=== PATIENT | female | born 1985 | race Caucasian/White ===

== ENCOUNTER 2018-12-23 18:39 | Emergency (ER) | payer MEDICAID ==
[~2018-12-23] VITALS: Ht 157.5 cm; Wt 53.0 kg
[~2018-12-23 18:39] MED LIST: NO HOME MEDS
[2018-12-23 18:42] VITALS: BP 114/57
[2018-12-23 19:14] LABS: INR 1.1 INR; PROTHROMBIN TIME 11.3 SECONDS (9.0-12.0)
[2018-12-23 19:15] LABS: ALANINE AMINOTRANSFERASE 18 U/L (12-78); ALBUMIN 4.3 G/DL (3.4-5.0); ALBUMIN/GLOBULIN RATIO 1.1 (1.1-1.5); ALKALINE PHOSPHATASE 14 IU/L (46-116); ANION GAP 11 (8-16); ASPARTATE AMINO TRANSFERASE 14 U/L (10-37); BILIRUBIN,TOTAL 0.4 MG/DL (0.1-1.0); BLOOD UREA NITROGEN 16 MG/DL (7-18); BUN/CREATININE RATIO 23.2 (6.6-38.0); CALCIUM 9.4 MG/DL (8.5-10.1); CHLORIDE 102 MMOL/L (99-107); CREATININE 0.69 MG/DL (0.40-0.90); GLUCOSE 105 MG/DL (70-104); POTASSIUM 3.8 MMOL/L (3.5-5.1); SODIUM 141 MMOL/L (135-145); TOTAL CARBON DIOXIDE 28.3 MMOL/L (24-32); TOTAL PROTEIN 8.1 G/DL (6.4-8.2); eGFR > 90 ML/MIN
[2018-12-23 19:17] LABS: BASOPHILS % (AUTO) 0.3 % (0-1); EOSINOPHILS % (AUTO) 0.4 % (0-6); HEMATOCRIT 30.8 % (35.0-45.0); HEMOGLOBIN 9.5 g/dl (12.0-16.0); LYMPHOCYTES # (AUTO) 1.1 X10'3 (1.1-4.8); LYMPHOCYTES % (AUTO) 13.8 % (21-51); MEAN CORPUSCULAR HEMOGLOBIN 23.9 PG (27.0-31.0); MEAN CORPUSCULAR HGB CONC 30.7 g/dL (33.0-36.5); MEAN CORPUSCULAR VOLUME 77.8 FL (78-98); MEAN PLATELET VOLUME 8.1 FL (7.4-10.4); MONOCYTES # (AUTO) 0.4 X10'3 (0-0.9); MONOCYTES % (AUTO) 5.7 % (2-12); NEUTROPHILS # (AUTO) 6.1 X10'3 (1.8-7.7); NEUTROPHILS % (AUTO) 79.8 % (42-75); PLATELET COUNT 443 X10'3 (140-440); RED BLOOD COUNT 3.96 X10'6 (4.20-5.60); RED CELL DISTRIBUTION WIDTH 18.7 % (11.5-14.5); WHITE BLOOD COUNT 7.6 X10'3 (4.5-11.0)
--- NOTE | 2018-12-23 19:57 | NUR ---
NO RESPONSE FROM LOBBY WHEN ATTEMPTING ROOM. CALL PLACED TO NUMBER ON FILE, MESSAGE BOX FULL UNABLE TO LEAVE MESSAGE FOR F/U. DR NAILS INFORMED.
[2018-12-23 20:12] LABS: PLATELET ESTIMATE INCREASED
[2018-12-23 20:13] LABS: ACANTHOCYTES FEW; ANISOCYTOSIS 2+; HYPOCHROMASIA 1+; MICROCYTOSIS 1+; POLYCHROMASIA FEW; TARGET CELLS FEW
== END 2018-12-23 21:03 | disposition left against medical advice (07) ==
LOC: ER 18:39
DX: R10.9 Unspecified abdominal pain (principal); Z53.21 Procedure and treatment not carried out due to patient leaving prior to being seen by health care provider
CPT/HCPCS: 36415; 80053; 85025; 85610

== ENCOUNTER 2019-12-04 13:45 | Emergency (ER) | payer MEDICAID | END 2019-12-04 14:38 | disposition left against medical advice (07) | LOC: ER 13:45 | DX: M79.603 Pain in arm, unspecified (principal); Z53.21 Procedure and treatment not carried out due to patient leaving prior to being seen by health care provider ==

== ENCOUNTER 2023-08-02 23:02 | Inpatient (IN) | payer MEDICAID ==
[~2023-08-02] VITALS: Ht 160 cm; Wt 55.4 kg
[2023-08-02 23:19] LABS: BASOPHILS # (AUTO) 0.1 X10'3 (0-0.2); EOSINOPHILS # (AUTO) 0.1 X10'3 (0-0.9); LYMPHOCYTES # (AUTO) 1.7 X10'3 (1.1-4.8); NEUTROPHILS # (AUTO) 3.7 X10'3 (1.8-7.7)
[2023-08-02 23:20] LABS: EOSINOPHILS % (AUTO) 1.9 % (0-6); LYMPHOCYTES % (AUTO) 28.4 % (21-51); MONOCYTES # (AUTO) 0.5 X10'3 (0-0.9); MONOCYTES % (AUTO) 8.5 % (2-12); NEUTROPHILS % (AUTO) 60.2 % (42-75); PLATELET COUNT 412 X10'3 (140-440); WHITE BLOOD COUNT 6.1 X10'3 (4.5-11.0)
[2023-08-02 23:28] LABS: ALANINE AMINOTRANSFERASE 21 U/L (12-78); ALBUMIN 4.4 G/DL (3.4-5.0); ALBUMIN/GLOBULIN RATIO 1.2 (1.1-1.5); ALKALINE PHOSPHATASE 24 IU/L (46-116); ANION GAP 10 (8-16); ASPARTATE AMINO TRANSFERASE 17 U/L (10-37); BILIRUBIN,TOTAL 0.3 MG/DL (0.1-1.0); BLOOD UREA NITROGEN 18 MG/DL (7-18); BUN/CREATININE RATIO 27.7 (10.0-20.0); CALCIUM 9.5 MG/DL (8.5-10.1); CHLORIDE 98 MMOL/L (99-107); CREATININE 0.65 MG/DL (0.40-0.90); GLUCOSE 101 MG/DL (70-104); POTASSIUM 3.7 MMOL/L (3.5-5.1); SODIUM 136 MMOL/L (135-145); TOTAL CARBON DIOXIDE 27.9 MMOL/L (24-32); TOTAL PROTEIN 8.2 G/DL (6.4-8.2); eCRCL 98 ML/MIN; eGFR > 90 ML/MIN
[2023-08-02 23:35] LABS: PRO BRAIN NATRIURETIC PEPTIDE 100 PG/ML (0-125)
[2023-08-02 23:54] LABS: HEMATOCRIT 28.3 % (35.0-45.0); HEMOGLOBIN 8.9 g/dl (12.0-16.0); MEAN CORPUSCULAR HEMOGLOBIN 20.1 PG (27.0-31.0); MEAN CORPUSCULAR HGB CONC 31.3 g/dL (33.0-36.5); MEAN CORPUSCULAR VOLUME 64.3 FL (78-98); RED BLOOD COUNT 4.41 X10'6 (4.20-5.60); RED CELL DISTRIBUTION WIDTH 21.3 % (11.5-14.5)
[2023-08-03 00:39] LABS: ACANTHOCYTES FEW; ANISOCYTOSIS 3+; ELLIPTOCYTES FEW; HYPOCHROMASIA 2+; LARGE PLATELETS FEW; MICROCYTOSIS 2+; PLATELET ESTIMATE NORMAL; POLYCHROMASIA FEW; STOMATOCYTES FEW; TARGET CELLS FEW
[2023-08-03 00:40] LABS: POIKILOCYTOSIS 1+
--- NOTE | 2023-08-03 01:43 | NUR ---
Primary CARDIAC CATH LAB MANAGER relieved for lunch. Patient resting in bed, educated on plan of care, no needs at this time.
[2023-08-03] MEDS ORDERED: pantoprazole 40 MG vial IV ONE (03:00)
[2023-08-03] MEDS ORDERED: ketorolac trometh. 30mg/ml inj. IV ONE (03:00)
[2023-08-03] MEDS ORDERED: morphine 4 MG/ML inj SYRINge IV ONE (03:00)
[2023-08-03] MEDS ORDERED: normal saline 1000ML IV soln IVB ONE (03:00)
[2023-08-03] MEDS ORDERED: aspirin 81mg tab.chew PO ONE (03:00)
[2023-08-03] MEDS ORDERED: ondansetron/PF 4mg/2ml inj IV ONE (03:00)
[2023-08-03] MEDS ORDERED: pantoprazole 40MG/NS 100ML BAG 100 ML IV ONE (03:35)
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
[2023-08-03 03:46] LABS: C-REACTIVE PROTEIN 0.05 MG/DL (0.0-0.5); LIPASE 29 U/L (16-77)
[2023-08-03] MEDS ORDERED: iohexol 350MG/ML 100ml bottle IV ONE (03:47)
[2023-08-03 03:54] LABS: ETHANOL < 10 MG/DL (<10)
[2023-08-03] MEDS ORDERED: magnesium 4gm in 100ml NS 100 ML IV PRN (06:10)
[2023-08-03] MEDS ORDERED: PERFLUTREN PROTEIN-A MICROSPHR (Optison) 0.22 MG/ML 3ML VIAL IV ONE (06:10)
[2023-08-03] MEDS ORDERED: potassium Cl 20 mEq SR tablet PO PRN ×2 (06:10)
[2023-08-03] MEDS ORDERED: potassium Cl 40MEQ/1/2NS 520ml 520 ML IV PRN (06:10)
[2023-08-03] MEDS ORDERED: HYDROcodone/acetaminophen 5mg/325mg tablet PO PRN (06:10)
[2023-08-03] MEDS ORDERED: magnesium 2GM in 50ml NS 50 ML IV PRN (06:10)
[2023-08-03] MEDS ORDERED: mag hydrox/Alum hydrox/simeth 30ml oral suspension PO PRN (06:10)
[2023-08-03] MEDS ORDERED: acetaminophen 325mg tablet PO PRN ×2 (06:10)
[2023-08-03] MEDS ORDERED: magnesium hydroxide 30ml (MOM) UD suspension PO PRN (06:10)
[2023-08-03] MEDS: K and/or MAG REPLACEMENT MC SCH ×2 (07:51→21:07)
[2023-08-03] MEDS: docusate sod 100mg capsule PO SCH ×2 (07:54→21:06)
[2023-08-03] MEDS ORDERED: pantoprazole 40MG/NS 100ML BAG 100 ML IV SCH (08:00)
[2023-08-03 09:07] LABS: BILIRUBIN,URINE NEGATIVE (Neg); CLARITY,URINE SLIGHTLY CLOUDY (Clear); COLOR,URINE YELLOW (Yellow); GLUCOSE, URINE NEGATIVE (Neg); KETONES,URINE NEGATIVE (Neg); LEUKOCYTE ESTERASE ,URINE NEGATIVE (Neg); NITRITES, URINE POSITIVE (Neg); OCCULT BLOOD,URINE SMALL (Neg); PROTEIN,URINE TRACE mg/dl (Neg); URINE HCG NEGATIVE (NEG); UROBILINOGEN,URINE 0.2 E.U/dL (0.2-1.0)
[2023-08-03 09:13] LABS: UA COLLECTION TYPE CLN CATCH MIDSTREAM
[2023-08-03 09:16] LABS: HCG SERUM QL NEGATIVE
[2023-08-03 09:17] LABS: BACTERIA,URINE 2+ /HPF (Neg)
[2023-08-03 09:18] LABS: SQUAMOUS EPITHELIAL CELL,UR MANY /LPF (FEW)
[2023-08-03 09:19] LABS: MUCUS STRANDS MODERATE /LPF (Neg)
[2023-08-03 09:24] LABS: URINE AMPHETAMINE SCREEN POSITIVE (Neg); URINE BARBITUATE SCREEN NEGATIVE (Neg); URINE BENZODIAZEPINES SCREEN NEGATIVE (Neg); URINE CANNABINOID SCREEN POSITIVE (Neg); URINE COCAINE SCREEN NEGATIVE (Neg); URINE OPIATE SCREEN POSITIVE (Neg); URINE PHENCYCLIDINE SCREEN NEGATIVE (Neg)
[2023-08-03 09:29] LABS: THYROID STIMULATING HORMONE 4.12 ulU/ml (0.34-4.50)
[2023-08-03] MEDS ORDERED: iron sucrose complex injection 500 MG in normal saline 250ml IV soln 250 ML IV ONE (11:35)
--- NOTE | 2023-08-03 16:02 | NUR ---
I tried to call for report, charge nurse Ever said that he has not assigned this patient yet to a nurse.
--- NOTE | 2023-08-03 16:40 | NUR ---
Attempted to call for report, I was told the nurse was in doing discharge of a patient and will call me back
--- NOTE | 2023-08-03 16:52 | NUR ---
Attempted to call for the report again, I was told the nurse was taking out an IV of the patient being discharge
--- NOTE | 2023-08-03 17:05 | NUR ---
Assumed patient care, oriented to room, call light and fall precautions. Questions answered. VSS. Tele #[phone]
[2023-08-03 17:10] VITALS: BP 111/50; PULSE 64; RESP 16; TEMP 98.7; O2SAT 100
[2023-08-03] MEDS: HYDROcodone/acetaminophen 10/325mg tab PO PRN (17:23)
[2023-08-03 20:00] VITALS: RESP 16; O2SAT 99
[2023-08-03] MEDS: enoxaparin 40mg/0.4ml syringe SQ SCH (21:21)
[2023-08-03 22:00] VITALS: BP 89/42; PULSE 64; RESP 16; TEMP 97.9; O2SAT 98
[2023-08-04] VITALS (7 sets, daily range): BP systolic 95–116; BP diastolic 53–64; PULSE 56–91; RESP 16–17; TEMP 97.8–98.8; O2SAT 99–100
--- NOTE | 2023-08-04 06:16 | NUR ---
Problems reprioritized. Patient report given, questions answered & plan of care reviewed with Melissa Park RN.
--- NOTE | 2023-08-04 06:33 | NUR ---
Patient in room [facility]TH[facility] 4013. I have received report from Dinora EDWARD and had the opportunity to ask questions and assume patient care.
[2023-08-04 07:06] LABS: BASOPHILS # (AUTO) 0.1 X10'3 (0-0.2); BASOPHILS % (AUTO) 1.3 % (0-1); EOSINOPHILS # (AUTO) 0.1 X10'3 (0-0.9); EOSINOPHILS % (AUTO) 3.2 % (0-6); LYMPHOCYTES # (AUTO) 0.8 X10'3 (1.1-4.8); LYMPHOCYTES % (AUTO) 18.1 % (21-51); MEAN PLATELET VOLUME 7.9 FL (7.4-10.4); MONOCYTES # (AUTO) 0.3 X10'3 (0-0.9); MONOCYTES % (AUTO) 7.2 % (2-12); NEUTROPHILS # (AUTO) 3.2 X10'3 (1.8-7.7); NEUTROPHILS % (AUTO) 70.2 % (42-75); PLATELET COUNT 307 X10'3 (140-440); WHITE BLOOD COUNT 4.6 X10'3 (4.5-11.0)
[2023-08-04 07:08] LABS: ALANINE AMINOTRANSFERASE 15 U/L (12-78); ALBUMIN 3.3 G/DL (3.4-5.0); ALBUMIN/GLOBULIN RATIO 1.1 (1.1-1.5); ALKALINE PHOSPHATASE 17 IU/L (46-116); ANION GAP 5 (8-16); ASPARTATE AMINO TRANSFERASE 14 U/L (10-37); BILIRUBIN,TOTAL 0.2 MG/DL (0.1-1.0); BLOOD UREA NITROGEN 13 MG/DL (7-18); BUN/CREATININE RATIO 24.1 (10.0-20.0); CALCIUM 8.7 MG/DL (8.5-10.1); CHLORIDE 102 MMOL/L (99-107); CREATININE 0.54 MG/DL (0.40-0.90); GLUCOSE 98 MG/DL (70-104); MAGNESIUM 1.9 MG/DL (1.5-2.4); POTASSIUM 3.8 MMOL/L (3.5-5.1); SODIUM 137 MMOL/L (135-145); TOTAL PROTEIN 6.4 G/DL (6.4-8.2); eCRCL 118 ML/MIN; eGFR > 90 ML/MIN
[2023-08-04] MEDS: docusate sod 100mg capsule PO SCH ×3 (07:47→21:38)
[2023-08-04] MEDS: K and/or MAG REPLACEMENT MC SCH ×2 (07:49→21:14)
[2023-08-04] MEDS ORDERED: CefTRIAXone/D5W-Rocephin 1gm 50 ML IV ONE (08:20)
[2023-08-04 08:26] LABS: HEMATOCRIT 24.4 % (35.0-45.0); HEMOGLOBIN 7.4 g/dl (12.0-16.0); RED BLOOD COUNT 3.61 X10'6 (4.20-5.60)
[2023-08-04 08:27] LABS: MEAN CORPUSCULAR HEMOGLOBIN 20.5 PG (27.0-31.0); MEAN CORPUSCULAR HGB CONC 30.4 g/dL (33.0-36.5); MEAN CORPUSCULAR VOLUME 67.5 FL (78-98); RED CELL DISTRIBUTION WIDTH 20.7 % (11.5-14.5)
[2023-08-04 08:28] LABS: ANISOCYTOSIS 3+; ELLIPTOCYTES FEW; HYPOCHROMASIA 2+; MICROCYTOSIS 2+; PLATELET ESTIMATE NORMAL; POLYCHROMASIA FEW; STOMATOCYTES FEW; TARGET CELLS FEW; TEAR DROP CELLS 1+
[2023-08-04] MEDS: HYDROcodone/acetaminophen 10/325mg tab PO PRN (08:32)
[2023-08-04] MEDS ORDERED: pantoprazole 40mg IV 80 MG in normal saline 100ml IV soln 100 ML IV ONE (08:55)
[2023-08-04] MEDS ORDERED: mag & alum hydrox/simeth susp 40 ML, diphenhydrAMINE oral solution 100 MG, LIDOcaine Vi... PO PRN ×3 (09:30)
[2023-08-04] MEDS: ascorbic acid 500mg tablet PO SCH ×2 (09:39→17:49)
--- NOTE | 2023-08-04 18:55 | NUR ---
received report from moreno. and pt given off to livan. report given to janae licona
--- NOTE | 2023-08-04 18:57 | NUR ---
Patient in room [facility]TH[facility] 4013. I have received report from Sherry.WAGNER and had the opportunity to ask questions and assume patient care.
[2023-08-04] MEDS: pantoprazole 40MG/NS 100ML BAG 100 ML IV SCH (21:35)
[2023-08-04] MEDS: FERROUS SULFATE 142 MG TABLET.ER (45mg elemental) PO SCH (21:39)
[2023-08-04] MEDS: enoxaparin 40mg/0.4ml syringe SQ SCH (21:39)
[2023-08-05] VITALS (10 sets, daily range): BP systolic 96–142; BP diastolic 42–69; PULSE 63–94; RESP 13–22; TEMP 97.7–98.1; O2SAT 98–100
--- NOTE | 2023-08-05 06:41 | NUR ---
Problems reprioritized. Patient report given, questions answered & plan of care reviewed with WAGNER Jimenez.
[2023-08-05 07:11] LABS: BASOPHILS # (AUTO) 0.1 X10'3 (0-0.2); BASOPHILS % (AUTO) 1.6 % (0-1); EOSINOPHILS # (AUTO) 0.2 X10'3 (0-0.9); EOSINOPHILS % (AUTO) 3.7 % (0-6); LYMPHOCYTES # (AUTO) 1.3 X10'3 (1.1-4.8); LYMPHOCYTES % (AUTO) 31.3 % (21-51); MEAN PLATELET VOLUME 8.1 FL (7.4-10.4); MONOCYTES # (AUTO) 0.3 X10'3 (0-0.9); MONOCYTES % (AUTO) 8.4 % (2-12); NEUTROPHILS # (AUTO) 2.3 X10'3 (1.8-7.7); PLATELET COUNT 342 X10'3 (140-440); WHITE BLOOD COUNT 4.1 X10'3 (4.5-11.0)
[2023-08-05 07:43] LABS: ALANINE AMINOTRANSFERASE 15 U/L (12-78); ALBUMIN 3.5 G/DL (3.4-5.0); ALKALINE PHOSPHATASE 17 IU/L (46-116); ANION GAP 6 (8-16); ASPARTATE AMINO TRANSFERASE 13 U/L (10-37); BILIRUBIN,TOTAL 0.2 MG/DL (0.1-1.0); BLOOD UREA NITROGEN 12 MG/DL (7-18); BUN/CREATININE RATIO 24.5 (10.0-20.0); CALCIUM 8.9 MG/DL (8.5-10.1); CHLORIDE 101 MMOL/L (99-107); CREATININE 0.49 MG/DL (0.40-0.90); FREE T4 (FREE THYROXINE) 0.85 NG/DL (0.73-1.40); GLUCOSE 87 MG/DL (70-104); POTASSIUM 3.7 MMOL/L (3.5-5.1); SODIUM 138 MMOL/L (135-145); TOTAL PROTEIN 6.9 G/DL (6.4-8.2); eCRCL 130 ML/MIN; eGFR > 90 ML/MIN
[2023-08-05 07:49] LABS: HEMATOCRIT 28.3 % (35.0-45.0); HEMOGLOBIN 8.4 g/dl (12.0-16.0); MEAN CORPUSCULAR HEMOGLOBIN 20.3 PG (27.0-31.0); MEAN CORPUSCULAR HGB CONC 29.8 g/dL (33.0-36.5); MEAN CORPUSCULAR VOLUME 68.2 FL (78-98); RED BLOOD COUNT 4.15 X10'6 (4.20-5.60); RED CELL DISTRIBUTION WIDTH 21.7 % (11.5-14.5)
[2023-08-05] MEDS: K and/or MAG REPLACEMENT MC SCH ×2 (08:00→19:08)
[2023-08-05] MEDS: FERROUS SULFATE 142 MG TABLET.ER (45mg elemental) PO SCH ×2 (08:00→19:52)
[2023-08-05 08:23] LABS: ANISOCYTOSIS 3+; HYPOCHROMASIA 1+; MICROCYTOSIS 2+; PLATELET ESTIMATE NORMAL; POIKILOCYTOSIS FEW
[2023-08-05] MEDS: ascorbic acid 500mg tablet PO SCH ×2 (08:30→19:53)
[2023-08-05] MEDS ORDERED: MIDAZolam 1 MG/ML 5ML VIAL ONE (08:36)
[2023-08-05] MEDS ORDERED: LIDOcaine Viscous 15ml cup ONE (08:36)
[2023-08-05] MEDS ORDERED: fentaNYL/PF 50MCG/1 ML 2ML syringe ONE (08:36)
[2023-08-05] MEDS: pantoprazole 40MG/NS 100ML BAG 100 ML IV SCH ×2 (10:12→20:14)
[2023-08-05] MEDS: CefTRIAXone/D5W-Rocephin 1gm 50 ML IV SCH (12:20)
[2023-08-05] MEDS ORDERED: magnesium citrate 296ml oral solution PO ONE (15:40)
[2023-08-05] MEDS ORDERED: bisacodyl 10mg suppository rectal RC PRN (15:40)
[2023-08-05] MEDS: lactulose 20gm/30ml cup PO SCH (16:55)
--- NOTE | 2023-08-05 18:39 | NUR ---
Report to Kaela EDWARD & Jan JENSENN
[2023-08-05] MEDS: ondansetron/PF 4mg/2ml inj IV PRN (19:11)
[2023-08-05] MEDS: docusate sod 100mg capsule PO SCH (19:52)
[2023-08-05] MEDS: enoxaparin 40mg/0.4ml syringe SQ SCH (19:55)
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
[2023-08-06] MEDS: lactulose 20gm/30ml cup PO SCH ×2 (01:55→09:07)
--- NOTE | 2023-08-06 03:10 | NUR ---
NETWORK SYSTEMS ADMINISTRATOR documentation: I have reviewed and agree with assessment performed and documented by DAYO ALLEN. UNLESS OTHERWISE CHARTED.
[2023-08-06 06:00] VITALS: BP 94/54; PULSE 86; RESP 15; TEMP 97.3; O2SAT 100
--- NOTE | 2023-08-06 06:16 | NUR ---
Problems reprioritized. Patient report given, questions answered & plan of care reviewed with Barbraa EDWARD .
[2023-08-06 06:39] LABS: BASOPHILS # (AUTO) 0.1 X10'3 (0-0.2); BASOPHILS % (AUTO) 1.5 % (0-1); EOSINOPHILS # (AUTO) 0.1 X10'3 (0-0.9); EOSINOPHILS % (AUTO) 2.2 % (0-6); HEMATOCRIT 27.5 % (35.0-45.0); HEMOGLOBIN 8.2 g/dl (12.0-16.0); LYMPHOCYTES # (AUTO) 1.2 X10'3 (1.1-4.8); MEAN CORPUSCULAR HGB CONC 29.7 g/dL (33.0-36.5); MEAN CORPUSCULAR VOLUME 67.1 FL (78-98); MEAN PLATELET VOLUME 8.1 FL (7.4-10.4); MONOCYTES # (AUTO) 0.5 X10'3 (0-0.9); MONOCYTES % (AUTO) 9.8 % (2-12); NEUTROPHILS # (AUTO) 3.2 X10'3 (1.8-7.7); NEUTROPHILS % (AUTO) 62.5 % (42-75); PLATELET COUNT 385 X10'3 (140-440); RED CELL DISTRIBUTION WIDTH 21.9 % (11.5-14.5); WHITE BLOOD COUNT 5.1 X10'3 (4.5-11.0)
[2023-08-06 07:05] LABS: ALANINE AMINOTRANSFERASE 17 U/L (12-78); ALBUMIN 3.6 G/DL (3.4-5.0); ALKALINE PHOSPHATASE 18 IU/L (46-116); ANION GAP 8 (8-16); ASPARTATE AMINO TRANSFERASE 14 U/L (10-37); BILIRUBIN,TOTAL 0.2 MG/DL (0.1-1.0); BLOOD UREA NITROGEN 18 MG/DL (7-18); CALCIUM 9.4 MG/DL (8.5-10.1); CHLORIDE 99 MMOL/L (99-107); GLUCOSE 99 MG/DL (70-104); POTASSIUM 4.3 MMOL/L (3.5-5.1); SODIUM 136 MMOL/L (135-145); TOTAL CARBON DIOXIDE 29.1 MMOL/L (24-32); TOTAL PROTEIN 7.3 G/DL (6.4-8.2); eCRCL 106 ML/MIN; eGFR > 90 ML/MIN
[2023-08-06] MEDS: K and/or MAG REPLACEMENT MC SCH (08:00)
[2023-08-06 08:55] VITALS: RESP 18
[2023-08-06] MEDS: pantoprazole 40MG/NS 100ML BAG 100 ML IV SCH (09:05)
[2023-08-06] MEDS: docusate sod 100mg capsule PO SCH (09:09)
[2023-08-06] MEDS: ascorbic acid 500mg tablet PO SCH (09:10)
[2023-08-06] MEDS: FERROUS SULFATE 142 MG TABLET.ER (45mg elemental) PO SCH (09:10)
[2023-08-06] MEDS: CefTRIAXone/D5W-Rocephin 1gm 50 ML IV SCH (09:50)
[2023-08-06 10:00] VITALS: BP 103/62; PULSE 79; RESP 18; TEMP 97.8; O2SAT 100
[2023-08-06] MEDS: ondansetron/PF 4mg/2ml inj IV PRN (12:32)
[2023-08-06] MEDS ORDERED: LEVO750T68 PO (12:46)
[2023-08-06] MEDS ORDERED: FERR142T13 PO (12:46)
[2023-08-06] MEDS ORDERED: ONDA4TAB12 PO (14:03)
[2023-08-06] MEDS ORDERED: pantoprazole 40mg Tablet.DR PO SCH (20:00)
[2023-08-07 22:35] LABS: ALBUMIN 3.3 g/dL (2.9-4.4); ALPHA-1-GLOBULIN 0.3 g/dL (0.0-0.4); ALPHA-2-GLOBULIN 0.8 g/dL (0.4-1.0); GAMMA GLOBULIN 1.1 g/dL (0.4-1.8); GLOBULIN, TOTAL 3.2 g/dL (2.2-3.9); M-SPIKE Not Observed g/dL (Not Observed); PROTEIN, TOTAL, SERUM 6.5 g/dL (6.0-8.5)
== END 2023-08-06 16:00 | disposition home or self-care (01) | DRG 203 ==
LOC: ER 23:02 → ED HOLD 08-03 06:12 → EDBEDREQ 08-03 15:31 → ORTHO 4S 08-03 17:10
PROVIDERS: ADMIT Family Medicine; ATTEND Family Medicine
PROC: B32T1ZZ Computerized Tomography (CT Scan) of Left Pulmonary Artery using Low Osmolar Contrast (ICD-10-PCS; 2023-08-03)
PROC: B3201ZZ Computerized Tomography (CT Scan) of Thoracic Aorta using Low Osmolar Contrast (ICD-10-PCS; 2023-08-03)
PROC: B32S1ZZ Computerized Tomography (CT Scan) of Right Pulmonary Artery using Low Osmolar Contrast (ICD-10-PCS; 2023-08-03)
PROC: 0DB98ZX Excision of Duodenum, Via Natural or Artificial Opening Endoscopic, Diagnostic (ICD-10-PCS; principal; 2023-08-05)
PROC: 0DB78ZX Excision of Stomach, Pylorus, Via Natural or Artificial Opening Endoscopic, Diagnostic (ICD-10-PCS; 2023-08-05)
PROC: 0DB68ZX Excision of Stomach, Via Natural or Artificial Opening Endoscopic, Diagnostic (ICD-10-PCS; 2023-08-05)
DX: R07.89 Other chest pain (principal); I44.1 Atrioventricular block, second degree; D50.9 Iron deficiency anemia, unspecified; F17.210 Nicotine dependence, cigarettes, uncomplicated; D56.9 Thalassemia, unspecified; Z20.822 Contact with and (suspected) exposure to COVID-19; N39.0 Urinary tract infection, site not specified; K29.70 Gastritis, unspecified, without bleeding; K59.00 Constipation, unspecified; Z98.891 History of uterine scar from previous surgery; Z80.41 Family history of malignant neoplasm of ovary
CPT/HCPCS: 36415; 43239; 71045; 71275; 80053; 80305; 80320; 81001; 81025; 82948; 83540; 83550; 83615; 83690; 83735; 83880; 84155; 84165; 84439; 84443; 84480; 84484; 84703; 85008; 85025; 85651; 86140; 86880; 86885; 86900; 86901; 87077; 87081; 87088; 87186; 87811; 93005; 93306; 96365; 96367; 96375; 99152; 99285; C9113; G0378; J0696; J1650; J1756; J1885; J2250; J2270; J2405; J3010; J3490; J7030; J7050; Q0163; Q9967

== ENCOUNTER 2024-06-25 07:34 | Emergency (ER) | payer MEDICAID ==
[~2024-06-25] VITALS: Ht 160 cm; Wt 54.5 kg
[~2024-06-25 07:34] MED LIST changes: +FERR142T13 PO; +LEVO750T68 PO; -NO HOME MEDS; +ONDA-243 PO
[2024-06-25 07:35] VITALS: TEMP 97.3
[2024-06-25] MEDS ORDERED: AMOX-101 PO (08:31)
[2024-06-25] MEDS ORDERED: IBUP-1985 PO (08:31)
[2024-06-25 08:38] VITALS: BP 115/75; PULSE 78; RESP 16; O2SAT 100
== END 2024-06-25 08:39 | disposition home or self-care (01) ==
LOC: ER 07:34
DX: K04.7 Periapical abscess without sinus (principal); E07.9 Disorder of thyroid, unspecified; Z79.899 Other long term (current) drug therapy
CPT/HCPCS: 99283

== ENCOUNTER 2024-10-22 19:20 | Emergency (ER) | payer MEDICAID ==
[~2024-10-22] VITALS: Ht 160 cm; Wt 61.5 kg
[~2024-10-22 19:20] MED LIST changes: +IBUP-1985 PO
[2024-10-22 20:04] VITALS: BP 106/74; PULSE 93; RESP 16; O2SAT 99
[2024-10-22] MEDS ORDERED: SULF1TAB49 PO (20:51)
[2024-10-22 20:58] VITALS: TEMP 99.7
== END 2024-10-22 21:06 | disposition home or self-care (01) ==
LOC: ER 19:21
DX: L02.01 Cutaneous abscess of face (principal)
CPT/HCPCS: 99283

== ENCOUNTER 2024-12-29 05:56 | Emergency (ER) | payer MEDICAID ==
[~2024-12-29] VITALS: Ht 160 cm; Wt 59.1 kg
[2024-12-29 06:18] LABS: URINE HCG NEGATIVE (NEG)
[2024-12-29 06:35] LABS: CLARITY,URINE Bloody (Clear); COLOR,URINE RED (Yellow); UA COLLECTION TYPE CLN CATCH MIDSTREAM
[2024-12-29 06:38] LABS: BACTERIA,URINE FEW /HPF (Neg); RBC,URINE TNTC /HPF (0-2); SQUAMOUS EPITHELIAL CELL,UR FEW /LPF (FEW)
[2024-12-29] MEDS ORDERED: MUPI15CR12 TOP (07:25)
[2024-12-29] MEDS ORDERED: NITR100C6 PO (07:25)
[2024-12-29] MEDS ORDERED: DOXY-224 PO (07:25)
[2024-12-29 07:32] LABS: ALBUMIN 3.4 G/DL (3.4-5.0); ANION GAP 8 (8-16); BLOOD UREA NITROGEN 23 MG/DL (7-18); BUN/CREATININE RATIO 36.5 (10.0-20.0); CALCIUM 8.4 MG/DL (8.5-10.1); CHLORIDE 104 MMOL/L (99-107); CREATININE 0.63 MG/DL (0.40-0.90); GLUCOSE 105 MG/DL (70-104); POTASSIUM 3.7 MMOL/L (3.5-5.1); SODIUM 138 MMOL/L (135-145); TOTAL CARBON DIOXIDE 25.7 MMOL/L (24-32); eCRCL 100 ML/MIN; eGFR > 90 ML/MIN
[2024-12-29 07:45] LABS: BASOPHILS % (AUTO) 0.2 % (0-1); EOSINOPHILS # (AUTO) 0.1 X10'3 (0-0.9); HEMATOCRIT 25.9 % (35.0-45.0); HEMOGLOBIN 7.8 g/dl (12.0-16.0); LYMPHOCYTES # (AUTO) 0.7 X10'3 (1.1-4.8); MEAN CORPUSCULAR HGB CONC 30.1 g/dL (33.0-36.5); MEAN CORPUSCULAR VOLUME 72.9 FL (78-98); MEAN PLATELET VOLUME 8.1 FL (7.4-10.4); MONOCYTES # (AUTO) 0.6 X10'3 (0-0.9); MONOCYTES % (AUTO) 9.8 % (2-12); NEUTROPHILS # (AUTO) 4.5 X10'3 (1.8-7.7); PLATELET COUNT 308 X10'3 (140-440); RED BLOOD COUNT 3.55 X10'6 (4.20-5.60); RED CELL DISTRIBUTION WIDTH 20.5 % (11.5-14.5)
[2024-12-29 07:51] VITALS: BP 109/69; PULSE 98; RESP 15; TEMP 98; O2SAT 100
[2024-12-29 08:57] LABS: ANISOCYTOSIS 3+; HYPOCHROMASIA 1+; MICROCYTOSIS 1+; PLATELET ESTIMATE NORMAL
[2024-12-29 08:58] LABS: ELLIPTOCYTES FEW
== END 2024-12-29 07:55 | disposition home or self-care (01) ==
LOC: ER 05:56
DX: L08.9 Local infection of the skin and subcutaneous tissue, unspecified (principal); N39.0 Urinary tract infection, site not specified; F17.200 Nicotine dependence, unspecified, uncomplicated; E07.9 Disorder of thyroid, unspecified
CPT/HCPCS: 36415; 80048; 81001; 81025; 85008; 85025; 87077; 87088; 87186; 99283

== ENCOUNTER 2025-07-04 19:58 | Emergency (ER) | payer MEDICAID ==
[~2025-07-04] VITALS: Ht 160 cm; Wt 65.0 kg
[~2025-07-04 19:58] MED LIST changes: +DOXY-224 PO; -IBUP-1985 PO; +IBUP600T52 PO; +MUPI15CR12 TOP; +NITR100C6 PO
[2025-07-04 20:04] VITALS: BP 109/71; PULSE 81; RESP 18; TEMP 98.4; O2SAT 100
--- NOTE | 2025-07-04 21:19 | RADIOLOGY REPORT ---
CLINICAL INDICATION: Left elbow pain TECHNIQUE: DI ELBOW, COMPLETE (3VW MIN) Comparison: None FINDINGS/IMPRESSION: : There is no evidence of acute fracture or dislocation. Soft tissues are unremarkable.
== END 2025-07-04 22:38 | disposition left against medical advice (07) ==
LOC: ER 19:58
DX: M79.602 Pain in left arm (principal); Z53.21 Procedure and treatment not carried out due to patient leaving prior to being seen by health care provider; W18.30XA Fall on same level, unspecified, initial encounter; Y93.89 Activity, other specified; Y92.89 Other specified places as the place of occurrence of the external cause; Y99.8 Other external cause status
CPT/HCPCS: 73080

== ENCOUNTER 2025-07-21 06:21 | Emergency (ER) | payer MEDICAID ==
[~2025-07-21] VITALS: Ht 160 cm; Wt 56.0 kg
[2025-07-21 07:25] LABS: LEUKOCYTE ESTERASE ,URINE NEGATIVE (Neg); NITRITES, URINE POSITIVE (Neg); OCCULT BLOOD,URINE LARGE (Neg)
[2025-07-21 07:27] LABS: UA COLLECTION TYPE CLN CATCH MIDSTREAM
[2025-07-21 07:33] LABS: MUCUS STRANDS NONE SEEN /LPF (Neg); SQUAMOUS EPITHELIAL CELL,UR MANY /LPF (FEW)
[2025-07-21 07:35] LABS: URINE HCG NEGATIVE (NEG)
[2025-07-21] MEDS: ketorolac trometh 30MG/ML vial 30 MG/ML VIAL IM ONE (09:06)
--- NOTE | 2025-07-21 09:15 | Physician Documentation ---
History of Present Illness ~ Chief Complaint: Blood in Urine Stated Complaint: BLOOD IN URINE Time Seen by MD: 08:33 Primary Medical Doctor: ROSSI PINA HPI 40-year-old female presents with a complaint of right flank pain and right pelvic pain. States she has had blood in her urine for the last day. Denies any fevers reports burning urination. Medication Reconciliation Allergies: Coded Allergies: No Known Allergies (Unverified , 12/29/24) Scheduled Doxycycline Hyclate (Doxycycline Hyclate), 1 CAP PO Q12H Ferrous Sulfate (Slow Release Iron), 1 TAB.SR PO BID Levofloxacin (Levofloxacin), 1 TAB PO DAILY Mupirocin Calcium (Mupirocin), 1 APPLIC TOP Q8H Nitrofurantoin Monohyd/M-Cryst (Macrobid 100 mg Capsule), 1 CAP PO Q12H Sulfamethoxazole/Trimethoprim (Septra Ds Tab), 1 TAB PO Q12H Scheduled PRN Ibuprofen (Ibuprofen), 1 TAB PO Q6H PRN for pain ONDANSETRON ODT 4mg tablet (Ondansetron Odt), 4 MG PO Q8H PRN for nausea/vomiting Past Medical History Past Medical History: *GI/HEPATOBILIARY*, Thyroid (unspecified) Past Surgical History: noncontributory Patient History: FH: brain cancer Paternal grandmother FH: colon cancer FATHER FH: diabetes mellitus FATHER FH: ovarian cancer MOTHER Alcohol Use: None Lives In: Home Review of Systems All Other Systems at this time: Reviewed and Negative ROS As stated above in the HPI, otherwise all systems are reviewed and negative. Physical Exam Vital Signs: Temperature: 97.7, Heart Rate: 85, Respiratory Rate: 16, BP: 125/78, Pulse Oximetry: 99, Weight: 56.000 Oxygen Flow Rate: 0 Physical Exam General: Alert, no apparent distress. Gastrointestinal: Soft, nontender, nondistended. Bowels sounds present. Negative CVA tenderness Extremities: Normal range of motion, no deformity. Neurologic: Oriented x4. Psychiatric: Normal mood and affect. Skin: Normal color, warm and dry. No edema, no ecchymosis. Progress Results/Orders Results/Orders Orders - KENAN RANDALL PLATE INSPECTOR Chlam/Gc Amp Ur (07/21/25 09:25) Completed Orders - KENAN RANDALL PLATE INSPECTOR Ketorolac Trometh 30mg/Ml Vial (Toradol (07/21/25 08:55) Phenazopyridine Tablet (Pyridium Tablet) (07/21/25 09:10) Sulfamethox/Trimetho. Ds Tab (Septra Ds (07/21/25 09:10) Vital Signs 07/21/25 07/21/25 07/21/25 07/21/25 06:35 08:08 09:06 09:43 Temp 97.7 97.7 97.7 Pulse 94 85 75 Resp 16 14 16 14 B/P (MAP) 103/46 125/78 (94) 107/63 (78) Pulse Ox 99 99 100 O2 Flow Rate 0 0 0 07/21/25 09:45 Temp 97.7 B/P (MAP) Laboratory Tests Test 07/21/25 06:40 Urine Specimen Description Cln catch midstream Urine Color Yellow Urine Clarity Clear Urine pH 6.0 Urine Specific [place] 1.025 Urine Protein 30 H Urine Glucose (UA) Negative Urine Ketones Trace H Urine Occult Blood Large H Urine Nitrite Positive H Urine Bilirubin Negative Urine Urobilinogen 1.0 Urine Leukocyte Esterase Negative Urine RBC 50-100 Urine WBC 50-100 H Urine Squamous Epithelial Cells Many Urine Bacteria 4+ Urine Mucus None seen Urine Culture Indicated Rejected for culture Volume Urine Centrifuged 10 ml Urine HCG, Qualitative Negative Urine Comment Medical Decision Making Additional info obtained from: other Findings Patient presents with positive nitrites RBCs an elevated white count in her urinalysis. Going to empirically treat her for UTI and have her follow up if she has any worsening concern Urinary Diff Dx:Considerations: Include: AAA, , Aortic dissection, Appendicitis, Bowel obstruction, Cholelithiasis, Choleangitis, DJD, Ectopic , Hepatitis, HNP, Impaction, Intrauterine , Musculoskeletal pain, Ovarian torsion, Pancreatitis, PID, Post-Op complication, Pyelonephritis, Renal failure, Strain, Urinary Obstruction, Urolithiasis, Urinary retention, UTI , Vaginitis, Other Genital Diff Dx:Considerations: Unlikely: -Complete, - Incomplete, -Inevitable, Ablortion-Missed, -Threatened, Abruptio placentae, Bartholin abscess, Bartholin cyst, Blood loss anemia, Constipation, Cervicitis, Dsymenorrhea, Ectopic , Foreign body, Hormonal, Hidradenitis suppurativa, Intrauterine , Menorrhagia, Menometrorrhagia, Menstrual bleeding, Myomatous uterus, Perianal abscess, Physiologic discharge, Pinworms, PID, Placenta previa, , Precipitous Hct, Trauma, UTI, Vaginitis(osis)-Atrophic, Vaginitis, Vaginitis(osis)-Bacterial, Vaginitis(osis)- Candidal, Vaginitis(osis)-Contact, Vaginitis(osis)-Herpes, Vaginitis(osis)- Trich., Other Departure Disposition: HOME / SELF CARE / HOMELESS Impression: Primary Impression: UTI (urinary tract infection) Discharge Instructions: Urinary Tract Infection, Adult, Hematuria, Adult Referrals: NO PRIMARY CARE PROVIDER (PCP) Prescriptions Sulfamethoxazole/Trimethoprim (Septra Ds Tab) 800 Mg/160 Mg Tablet 1 TAB PO Q12H for 10 Days, #20 TAB Prov: KENAN RANDALL NP 07/21/25 Signature Scribe Signature: e Attestation: Scribed for Kenan Randall Kiln Feeder by Kenan Calvin NP . 07/21/25 18:19 KENAN RANDALL NP Jul 21, 2025 09:15
[2025-07-21] MEDS ORDERED: SULF1TAB45 PO (09:18)
[2025-07-21] MEDS: phenazopyridine 100mg tablet PO ONE (09:22)
[2025-07-21] MEDS: sulfamethoxazole/trimethoprim DS (800/160mg) tablet PO ONE (09:22)
[2025-07-21 09:43] VITALS: BP 107/63; PULSE 75; RESP 14; O2SAT 100
[2025-07-21 09:45] VITALS: TEMP 97.7
== END 2025-07-21 09:47 | disposition home or self-care (01) ==
LOC: ER 06:22
DX: N39.0 Urinary tract infection, site not specified (principal); Z79.899 Other long term (current) drug therapy
CPT/HCPCS: 36415; 81001; 81025; 87491; 87591; 96372; 99283; J1885

== ENCOUNTER 2025-09-20 10:13 | Emergency (ER) | payer MEDICAID ==
[~2025-09-20] VITALS: Ht 160 cm; Wt 56.8 kg
[2025-09-20] MEDS: TETanus/Pertussis (Acell)/Diphther VAC/PF (Tdap-Adult) 0.5ml syringe IMVAC ONE (10:45)
--- NOTE | 2025-09-20 11:21 | Physician Documentation ---
History of Present Illness ~ Chief Complaint: Abscess Stated Complaint: L SIDED CHEST LUMP Time Seen by MD: 11:21 Primary Medical Doctor: ROSSI PINA [facility] This is a 40-year-old female who presents to the emergency department reporting a left axillary abscess that occurred after shaving her armpits. She reports some chills and pain, but denies fever. Tetanus Within 5 Years: Yes Medication Reconciliation Allergies: Coded Allergies: No Known Allergies (Unverified , 09/20/25) Scheduled Cephalexin Monohydrate (Cephalexin), 1 CAP PO Q8H Doxycycline Hyclate (Doxycycline Hyclate), 1 CAP PO Q12H Ferrous Sulfate (Slow Release Iron), 1 TAB.SR PO BID Levofloxacin (Levofloxacin), 1 TAB PO DAILY Mupirocin Calcium (Mupirocin), 1 APPLIC TOP Q8H Nitrofurantoin Monohyd/M-Cryst (Macrobid 100 mg Capsule), 1 CAP PO Q12H Sulfamethoxazole/Trimethoprim (Bactrim Ds Tablet), 1 TAB PO Q12H Scheduled PRN Ibuprofen (Ibuprofen), 1 TAB PO Q6H PRN for pain ONDANSETRON ODT 4mg tablet (Ondansetron Odt), 4 MG PO Q8H PRN for nausea/vomiting Past Medical History Past Medical History: *GI/HEPATOBILIARY*, Thyroid (unspecified) Past Surgical History: noncontributory Patient History: FH: brain cancer Paternal grandmother FH: colon cancer FATHER FH: diabetes mellitus FATHER FH: ovarian cancer MOTHER Alcohol Use: None Lives In: Home Review of Systems ROS As stated above in the HPI, otherwise all systems are reviewed and negative. Physical Exam Vital Signs: Temperature: 98.4, Source: Temporal, Heart Rate: 112, Respiratory Rate: 18, BP: 114/69, Pulse Oximetry: 99, Weight: 56.820 Oxygen Flow Rate: 0 Physical Exam General: Alert, no apparent distress. HEENT: PERRL, EOMI, no injection, moist mucous membranes. Neck: Full range of motion. Respiratory: Lungs clear, no respiratory distress. Chest: No accessory muscle use. Cardiovascular: Regular rate and rhythm, no murmurs. Gastrointestinal: Soft, nontender, nondistended. Bowels sounds present. Extremities: Normal range of motion, no deformity. Neurologic: Oriented x4. Psychiatric: Normal mood and affect. Skin: Normal color, warm and dry. No edema, no ecchymosis. Small scabbed abscess near right clavicle with mild surrounding cellulitis. Approximately 3 cm ovoid area of abscess beneath the left axilla with surrounding cellulitis. Procedures Procedures Patient initially declined I&D but then later agreed. Informed consent obtained: left axilla prepped with betadine and then anesthetized with 1.5 ml of 1% lido with epi. #11 blade then used to make small stab in center of abscess. White/yellow purulence noted. Dressing to site. Tolerated fair. Progress Results/Orders Results/Orders Orders - COURTNEY HENDERSON NP Cult (Aer) Routine C&S+Gram St (09/20/25 11:07) Dressing Orders (09/20/25 11:07) Laceration/I&D Tray Set Up (09/20/25 11:07) Wound Care Orders (09/20/25 11:07) Completed Orders - COURTNEY HENDERSON NP Cbc/Diff (09/20/25 11:07) BMP (09/20/25 11:07) Lidocaine 1% W/Epi 1:100,000 (Xylocaine (09/20/25 11:10) Tetanus/Pertuss/Diph Acell/Pf (Boostrix (09/20/25 11:10) Ketorolac Trometh 30mg/Ml Vial (Toradol (09/20/25 12:05) Ceftriaxone/O5k-Gwbftsre 1gm (Rocephin 1 (09/20/25 13:10) Lidocaine 1% W/Epi 1:100,000 (Xylocaine (09/20/25 15:10) Medications Received in ER Medications (Trade) Dose Ordered Sig/Johnny Route PRN Reason Start Time Stop Time Status Last Admin Dose Admin (Xylocaine 1%-EPI 1:100,000) Physician to administ... ONCE ONCE IJ 09/20/25 11:10 09/20/25 11:11 DC 09/20/25 13:22 20 ML (Boostrix vaccine syringe) 0.5 ml ONCE ONCE IMVAC 09/20/25 11:10 09/20/25 11:11 DC 09/20/25 10:45 0.5 ML (Toradol inj. 30mg/ml) 30 mg ONCE ONCE IM 09/20/25 12:05 09/20/25 12:06 DC 09/20/25 12:45 30 MG Ceftriaxone Sodium 50 ml @ 100 mls/hr ONCE ONCE IV 09/20/25 13:10 09/20/25 13:39 DC 09/20/25 13:26 100 MLS/HR Vital Signs 09/20/25 09/20/25 09/20/25 10:16 12:05 12:45 Temp 98.4 Pulse 112 97 Resp 18 20 14 B/P (MAP) 114/69 121/75 (90) Pulse Ox 99 96 O2 Flow Rate 0 Laboratory Tests Test 09/20/25 12:14 White Blood Count 11.5 H Red Blood Count 4.22 Hemoglobin 8.5 L Hematocrit 29.2 L Mean Corpuscular Volume 69.3 L Mean Corpuscular Hemoglobin 20.2 L Mean Corpuscular Hemoglobin Concent 29.1 L Red Cell Distribution Width 19.7 H Platelet Count 342 Mean Platelet Volume 7.9 Neutrophils (%) (Auto) 77.4 H Lymphocytes (%) (Auto) 10.6 L Monocytes (%) (Auto) 9.4 Eosinophils (%) (Auto) 1.5 Basophils (%) (Auto) 1.1 H Neutrophils # (Auto) 8.9 H Lymphocytes # (Auto) 1.2 Monocytes # (Auto) 1.1 H Eosinophils # (Auto) 0.2 Basophils # (Auto) 0.1 CBC Comment Platelet Estimate Normal Red Blood Cell Morphology Perf Hypochromasia 2+ Basophilic Stippling Anisocytosis 2+ Microcytosis 2+ Elliptocytes Few Schistocytes Few Sodium Level 138 Potassium Level 4.1 Chloride Level 106 Carbon Dioxide Level 23.1 L Anion Gap 9 Blood Urea Nitrogen 19 H Creatinine 0.49 Estimated GFR/1.73 m2 > 90 BUN/Creatinine Ratio 38.8 H Glucose Level 92 Calcium Level 8.7 Albumin 3.9 Chemistry Comments Medical Decision Making Additional information obtaine: old records Findings 07/21/25 seen here for evidence of UTI. Differential Dx:Considerations: Include: Abscess, Bacteremia, Cellulitis, Erys ipelas, Felon, Gas gangrene, Hidrademitis suppurativa, Impetigo, Lymphangitis, Osteromyelitis, Paronychia, Septicemia, Other Additional Comment Patient is found to have an abscess beneath the left axilla, and also one near the right clavicle. Both have mild surrounding cellulitic changes. Discussed with patient the need to drain the abscesses. She declined. She was given a dose of IV ceftriaxone in the ER, as well as 15 mg of IV Toradol. She will be sent home with both Bactrim and Keflex. The patient is instructed to return if worse at any time. Departure Time of Disposition: 13:07 Disposition: HOME / SELF CARE / HOMELESS Impression: Primary Impression: Abscess Condition: Stable Discharge Instructions: Skin Abscess, [id number] Additional Instructions: You Were treated with a dose of intravenous antibiotics in the emergency department. You were given a tetanus. We discussed the necessity of draining your abscess, but you declined initially and later agreed. At Home, apply warm moist compresses to the abscess area for at least 10 minutes 4 times a day. Ple ase follow-up with your primary care provider within the week. Meanwhile, take the prescribed antibiotics. Return if worse. Referrals: NO PRIMARY CARE PROVIDER (PCP) Prescriptions Cephalexin Monohydrate (Cephalexin) 500 Mg Capsule 1 CAP PO Q8H for 7 Days, #21 CAP Prov: COURTNEY HENDERSON NP 09/20/25 Sulfamethoxazole/Trimethoprim (Bactrim Ds Tablet) 800 Mg-160 Mg Tablet 1 TAB PO Q12H for 7 Days, #14 TAB Prov: COURTNEY HENDERSON NP 09/20/25 Education Educated: Patient Educated regarding: diagnosis, treatment, prognosis, need for follow up Signature Scribe Signature: x Attestation: The note accurately reflects work and decisions made by me.Courtney Calvin NP 09/20/25 11:21 COURTNEY HENDERSON NP Sep 20, 2025 11:21
[2025-09-20 12:05] VITALS: BP 121/75; PULSE 97; O2SAT 96
[2025-09-20 12:33] LABS: MEAN PLATELET VOLUME 7.9 FL (7.4-10.4); RED CELL DISTRIBUTION WIDTH 19.7 % (11.5-14.5)
[2025-09-20 12:34] LABS: CREATININE 0.49 MG/DL (0.40-0.90); TOTAL CARBON DIOXIDE 23.1 MMOL/L (24-32); eCRCL 128 ML/MIN; eGFR > 90 ML/MIN
[2025-09-20 12:45] VITALS: RESP 14
[2025-09-20] MEDS: ketorolac trometh 30MG/ML vial 30 MG/ML VIAL IM ONE (12:45)
[2025-09-20 12:54] LABS: PLATELET ESTIMATE NORMAL
[2025-09-20 12:55] LABS: ELLIPTOCYTES FEW
[2025-09-20] MEDS ORDERED: SULF1TAB49 PO (13:09)
[2025-09-20] MEDS ORDERED: CEPH500C3 PO (13:09)
[2025-09-20] MEDS: LIDOcaine 1% W/epiNEPHrine 1:100,000 20ml vial IJ ONE (13:22)
[2025-09-20] MEDS: CefTRIAXone/D5W-Rocephin 1gm 50 ML IV ONE (13:26)
[2025-09-20] MEDS ORDERED: LIDOcaine 1% W/epiNEPHrine 1:100,000 20ml vial IJ ONE (15:10)
[2025-09-20 20:55] VITALS: TEMP 98.4
== END 2025-09-20 20:56 | disposition home or self-care (01) ==
LOC: ER 10:14
DX: L02.412 Cutaneous abscess of left axilla (principal); Z79.899 Other long term (current) drug therapy
CPT/HCPCS: 10060; 36415; 80048; 85008; 85025; 90471; 90715; 96365; 96372; 99284; A6266; J0696; J1885; J3490; J7030; A6407; A6449

== ENCOUNTER 2025-09-25 01:39 | Emergency (ER) | payer MEDICAID ==
[~2025-09-25] VITALS: Ht 160 cm; Wt 60.0 kg
[~2025-09-25 01:39] MED LIST changes: +CEPH500C3 PO; +SULF1TAB49 PO
[2025-09-25] MEDS ORDERED: CEPH500C2 PO (02:24)
[2025-09-25] MEDS ORDERED: SULF1TAB49 PO (02:24)
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
[2025-09-25] MEDS: ibuprofen tablet 400 MG TABLET PO ONE (02:32)
[2025-09-25] MEDS: ondansetron 4mg rapidly disintigrating tab PO ONE (02:32)
[2025-09-25] MEDS: bacitracin 15gm ointment TP ONE (02:33)
[2025-09-25] MEDS: sulfamethoxazole/trimethoprim DS (800/160mg) tablet PO ONE (02:33)
[2025-09-25 02:44] VITALS: BP 124/80; PULSE 80; RESP 18; TEMP 98.1; O2SAT 99
== END 2025-09-25 02:47 | disposition home or self-care (01) ==
LOC: ER 01:40
DX: L02.11 Cutaneous abscess of neck (principal); Z79.899 Other long term (current) drug therapy
CPT/HCPCS: 99284